=== PATIENT | male | born 1980 | race Caucasian/White ===

== ENCOUNTER 2020-07-24 06:54 | Inpatient (IN) | payer BC ==
[~2020-07-24] VITALS: Ht 177.8 cm; Wt 103.4 kg
[~2020-07-24 06:54] MED LIST: DEPO-TESTO200 MG/1 M IM; DEXILANT60 MG PO; DRISDOL1250 MCG PO; SINGULAIR10 MG PO; SYNTHROID50 MCG PO
[2020-07-24 07:40] LABS: HEMOGLOBIN 17.8 gm/dl (14.0-17.5); WHITE BLOOD COUNT 8.1 K/UL (4.5-11.0)
[2020-07-24 08:05] LABS: BUN/CREATININE RATIO 12 (0-10)
[2020-07-24] MEDS ORDERED: ZINC50 M2 PO (11:58)
[2020-07-24] MEDS ORDERED: VITAMIN C500 M4 PO (11:58)
[2020-07-24] MEDS ORDERED: DAILY VITE1 EACH PO (11:59)
[2020-07-25 02:21] LABS: HEMOGLOBIN 18.8 gm/dl (14.0-17.5); RED BLOOD COUNT 5.98 M/UL (4.20-5.50); WHITE BLOOD COUNT 8.2 K/UL (4.5-11.0)
[2020-07-25 02:39] LABS: BUN/CREATININE RATIO 12 (0-10)
--- NOTE | 2020-07-25 05:55 | NUR ---
PATIENT CONVERTED BACK TO SINUS RHYTHM AT [phone]; SEE STRIP IN CHART
[2020-07-25] MEDS ORDERED: LOPRESSOR 25 MG25 MG PO (13:08)
[2020-07-25] MEDS ORDERED: ASPIRIN EC325 MG PO (13:08)
== END 2020-07-25 13:43 | disposition home or self-care (01) | DRG 310 ==
LOC: ER1 06:54 → CDU 11:39 → PROG CARE 13:16
PROVIDERS: Physician Assistant; Student in an Organized Health Care Education/Training Program; ADMIT Family Medicine
DX: I48.0 Paroxysmal atrial fibrillation (principal); Z79.82 Long term (current) use of aspirin; D75.1 Secondary polycythemia; K21.9 Gastro-esophageal reflux disease without esophagitis; Z79.899 Other long term (current) drug therapy; G47.33 Obstructive sleep apnea (adult) (pediatric); Z72.89 Other problems related to lifestyle; Z20.822 Contact with and (suspected) exposure to COVID-19
CPT/HCPCS: ECHO; 0240U; 36415; 71045; 80048; 80053; 82550; 82553; 83735; 83874; 84439; 84443; 84484; 85025; 85379; 85610; 85730; 93005; 93306; 96365; 96375; 96376; 99285; J7030; J7120